=== PATIENT | female | born 1955 | race Hispanic/Latino ===

== ENCOUNTER → 2017-08-24 | Day surgery (SDC) | payer OTHER ==
[~2017-08-24] MED LIST: FENTANYL CITRATE/PF 100MCG/2 ML INJ ONE; HYOSCYAMINE SULFATE 0.5 MG/ML AMP ONE; LEVAQUIN500 MG PO; MELATONIN PO; METRONIDAZOLE500 MG PO; MIDAZOLAM HCL 2 MG/2 ML VIAL ONE; NEXIUM40 MG PO; SYNTHROID125 MCG PO
--- NOTE | 2017-08-24 20:45 | Operative Report ---
DATE OF PROCEDURE: August 24, 2017 REFERRING PHYSICIAN: Dr. Jeri Ren PROCEDURES PERFORMED 1. Esophagogastroduodenoscopy with biopsies. 2. Colonoscopy with polypectomy. INDICATIONS FOR EGD: Acid reflux. INDICATIONS FOR COLONOSCOPY: Colorectal cancer screening. History of constipation. MEDICATION: Patient was done under MAC. Please see anesthesiologist's note. PROCEDURE: With the patient in the left lateral decubitus position, the flexible fiberoptic Olympus gastroscope was introduced into the esophagus under direct visualization without any difficulty. There was some patchy erythema noted in the distal esophagus. Some minimal nodularity was noted at the GE junction that was biopsied. The scope was then advanced with ease into the stomach. Mucosa overlying the antrum and the body revealed some patchy erythema and mild to moderate edema, and biopsies were obtained and sent to stain for H. pylori. Pylorus appeared to be of normal contour and shape. It was intubated with ease, and the scope was advanced all the way to the 2nd portion of the duodenum. The scope was then withdrawn slowly. Mucosa overlying the proximal 2nd portion and the duodenal bulb appeared to be within normal limits. The scope was then withdrawn back into the stomach and retroflexed. The mucosa overlying the fundus and the cardia appeared to be within normal limits. The scope was then straightened out. It was subsequently withdrawn. Patient tolerated the procedure well. IMPRESSION 1. Distal esophagitis, mild. 2. Minimal nodularity at gastroesophageal junction, biopsied. 3. Gastritis, biopsied. Biopsies sent to stain for H. pylori. PLAN: Follow up histology. Increase Nexium to 40 mg 1 p.o. a.c. b.i.d. The patient was then turned around. After adequate lubrication of the anal canal, the flexible fiberoptic Olympus colonoscope was inserted into the rectum with ease and advanced all the way to the cecum. It was then withdrawn slowly. Mucosa overlying the cecum, ascending colon, transverse colon appeared to be within normal limits. One polyp was hot biopsied from the descending colon. The sigmoid and rectum appeared to be within normal limits. The scope was then retroflexed into the distal rectum, and small internal hemorrhoids were noted, none of which was actively bleeding. The scope was then straightened out. It was subsequently withdrawn. Patient tolerated the procedure well. IMPRESSION 1. Descending colon polyp, hot biopsied. 2. Internal hemorrhoids, none actively bleeding. PLAN: Follow up pathology. Initiate high-fiber, low-fat diet. Initiate high-fiber supplement. Patient will need a followup colonoscopy in 3 to 5 years. Job#: [id number] cc:JERI REN MD
--- OUTSIDE RECORDS SUMMARY | 2017-08-25 15:55 | XMS REPORT ---
Author Author [facility] Address Unknown Phone Unavailable Care Team Providers Care Reconnaissance Crewmember Name Role Phone DOROTHY COSBY PP Unavailable Problems This patient has no known problems. Allergies, Adverse Reactions, Alerts This patient has no known allergies or adverse reactions. Medications This patient has no known medications. Encounters Start Date/Time End Date/Time Encounter Type Admission Type Attending Clinicians Care Facility Care Department Encounter ID 2017-06-14 13:52:00 Inpatient [facility] [id number] Results Test Description Test Time Test Comments Text Results Atomic Results Result Comments [facility] 2016-06-14 16:05:[address] [id number] IMAGING REPORTPatient Name: Eloise TAVAREZ of Service: [id number]: 60 Sex : F Order #: [id number] Room: INODOB: 1955 X-Ray Number: [id number] Record Number: [id number] Hospital Number: [id number] Physician: ,Ordering Physician: [facility] WITH CAD AND TOMOSYNTHESIS:CLINICAL HISTORY: Routine screening evaluation; history of right breastcancer greater than 10 years previously treated with lumpectomy andadjuvant chemotherapy and radiationTECHNIQUE: The mammogram is reviewed in conjunction with the CAD protocoland tomosynthesis.FINDINGS:There are stable postoperative and posttreatment changes noted in the rightbreast unchanged since 23 June 2015. The breast parenchymal patternconsists of scattered fibroglandular densities.There are a few benign calcifications noted.There are small benign-appearing left axillary lymph nodes present.IMPRESSION:Stable examination with no evidence of recurrent malignancy and no changesince 23 June 2015.BIRADS CATEGORY 2 - Benign Finding.[employer]IDE [employer] SALES CONSULTANT:PLEASE NOTE:1. In up to 10% of patients, cancers are not visible on mammography.2. If a suspicious lump is palpated, biopsy should not be deferredbecauseof a negative mammogram.MAMMOGRAPHY AT [facility] IS ACCREDITED BY [facility]ITALAN COLLEGE OF RADIOLOGYdfWE APPRECIATE YOUR OUTPATIENT REFERRAL.Electronically Signed By: Rashid Rapp M.D., 06/14/2016 4:03 David authenticated by MIKAYLA Lopez 2016-06-14 16:03:00
== END | disposition home or self-care (01) ==
LOC: OR 11:19
PROVIDERS: ATTEND Internal Medicine Gastroenterology
DX: Z12.11 Encounter for screening for malignant neoplasm of colon (principal); D12.4 Benign neoplasm of descending colon; K29.50 Unspecified chronic gastritis without bleeding; K22.70 Barrett's esophagus without dysplasia; K21.9 Gastro-esophageal reflux disease without esophagitis; K20.9 Esophagitis, unspecified; K58.9 Irritable bowel syndrome, unspecified; K59.00 Constipation, unspecified; K64.8 Other hemorrhoids; I10 Essential (primary) hypertension; F41.9 Anxiety disorder, unspecified; Z01.810 Encounter for preprocedural cardiovascular examination; Z85.3 Personal history of malignant neoplasm of breast
CPT/HCPCS: 43239; 45384; 93005; J1980; J2250